=== PATIENT | female | born 1995 ===

== ENCOUNTER 2025-03-17 11:44 | Outpatient (AMB) | payer BC, SELFPAY ==
--- NOTE | 2025-03-17 11:45 | AM.OFFWIN_ITS ---
Intake Vital Signs 03/17/25 11:46 Height 5 ft 6.5 in Weight 160 lb BMI 25.4 BP 102/60 Blood Pressure Location Rt brachial Position Sitting Pulse 82 Pulse Source Pulse Oximeter Pulse Oximetry (%) 98 Oxygen Delivery Method Room Air Intake Visit Reasons: EP Left ankle injury Intake Note: Patient presents c/o left ankle pain related to slipping on some black ice last night. Patient Tobacco Use Status: Never used Tobacco Allergies No Known Allergies Allergy (Verified 03/17/25 11:48) Do you need a note to return to daycare/school/sports/work: Yes HPI EP Left ankle injury HPI Details 29 year old female patient presents to [facility] clinic today with left heel pain which started yesterday after slipping on some ice. She states she slipped with her right foot and slammed her left foot down in order to catch herself. It has been mildly sore since then. She is able to walk. Denies swelling. 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 [facility] Social History Patient Tobacco Use Status: Never used Tobacco Review of Systems Const All systems reviewed & are unremarkable except as noted in HPI and below Physical Exam Vital Signs: Last Vital Signs Pulse 82 03/17/25 11:46 BP 102/60 03/17/25 11:46 Pulse Ox 98 03/17/25 11:46 Oxygen Delivery Method Room Air 03/17/25 11:46 BMI result Body Mass Index 25.4 Const General: cooperative, healthy appearing, comfortable and no acute distress Resp Effort & Inspection: normal respiratory effort Skin General skin exam: no rashes or lesions noted Extrem Other: left foot with mild tenderness over heel. No swelling/edema, erythema or warmth. No joint enlargement. Patient able to bear weight. Psych Appearance: grossly normal Mental Status: mental status grossly normal Speech and movement: Normal speech and movement present Assessment & Plan Assessment & Plan (1) Injury of left heel: Code(s): S99.922A - Unspecified injury of left foot, initial encounter Qualifiers: Encounter type: initial encounter Qualified Code(s): S99.922A - Unspecified injury of left foot, initial encounter Plan: Exam consistent with soft tissue injury following minor injury yesterday. Patient did not wish to have XR imaging today. I advised conservative measures with rest, ice, NSAIDs, elevation as needed. Patient states she will take these measures at home. 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 She will return to clinic or f/u with PCP if symptoms are unimproved with time and conservative treatment. All questions were answered and patient verbalizes understanding and agrees to plan. Coding Level of Care Code Est Pt Level 4 (11628) Diagnoses Injury of left heel, initial encounter S99.922A Encounter type: initial encounter
[2025-03-17 11:46] VITALS: BP 102/60; PULSE 82; O2SAT 98; BMI 25.4
== END 2025-03-17 12:20 | disposition home or self-care (01) ==
PROVIDERS: Visit Provider Nurse Practitioner Family
DX: S99.922A Unspecified injury of left foot, initial encounter (principal)